=== PATIENT | female | born 1940 | race Caucasian/White ===

== ENCOUNTER 2019-04-15 09:07 | Outpatient (CLI) | payer MEDICARE, OTHER ==
[~2019-04-15] VITALS: Ht 166.4 cm; Wt 56.4 kg
[2019-04-15] MEDS ORDERED: VIT-10 PO (09:20)
[2019-04-15] MEDS ORDERED: MULT-1029 PO (09:20)
[2019-04-15] MEDS ORDERED: PANT40TA3 PO (09:20)
[2019-04-15 09:23] VITALS: BP 120/64
== END 2019-04-15 09:51 | disposition home or self-care (01) ==
LOC: PREOP 09:07
PROVIDERS: ATTEND Podiatrist Foot & Ankle Surgery
DX: Z01.818 Encounter for other preprocedural examination (principal)
CPT/HCPCS: 87081